=== PATIENT | female | born 1970 | race Hispanic/Latino ===

== ENCOUNTER → 2016-12-27 | Outpatient (CLI) | payer OTHER ==
--- NOTE | 2016-12-27 11:46 | MAM ---
History: Well woman exam. Date of exam: 12/27/2016 Services provided: Bilateral full field digital screening mammography. CAD, the images were reviewed with R2 computer aided detection. FINDINGS: Glandular tissue is heterogeneously dense with increased mammographic density. Images are compared with 2014 study. Overall distribution appears stable. No dominant mass, architectural distortion or clustered microcalcification. IMPRESSION: Benign exam Recommendation: Routine annual mammography BIRAD CATEGORY: 2 BENIGN Electronically signed by: Muriel Mcmanus MD 12/27/2016 11:46 AM [employer]
== END | disposition home or self-care (01) ==
LOC: MAMMO 08:07
PROVIDERS: ATTEND Obstetrics & Gynecology
DX: Z12.31 Encounter for screening mammogram for malignant neoplasm of breast (principal)

== ENCOUNTER → 2017-12-12 | Outpatient (CLI) | payer BC ==
--- NOTE | 2017-12-14 14:28 | RAD ---
EXAM DESCRIPTION: Knee,Left Complete CLINICAL HISTORY: 47 years, Female, PRIMARY ARTHRITIS COMPARISON: None TECHNIQUE: 4 views of the left knee FINDINGS: No fracture or dislocation. Bones appear normally mineralized with normal trabecular pattern. Normal appearance of medial and lateral compartments on frontal view. Lateral view shows normal position of the patella. No patellar spurring or enthesopathy. No suprapatellar knee joint effusion. Normal contour of quadriceps and patellar tendons. Lateral tilt of the patella is seen without subluxation on patellar sunrise view. No patellar fracture. IMPRESSION: Negative for fracture or dislocation. Electronically signed by: Wilfredo Castro MD 12/14/2017 2:26 PM [facility]
== END ==
LOC: RAD 08:11
PROVIDERS: ATTEND Obstetrics & Gynecology
DX: M17.12 Unilateral primary osteoarthritis, left knee (principal)

== ENCOUNTER → 2018-07-25 | Outpatient (CLI) | payer BC | LOC: LAB.O 07:46 | PROVIDERS: ATTEND Family Medicine | DX: R53.82 Chronic fatigue, unspecified (principal); D50.8 Other iron deficiency anemias; M25.50 Pain in unspecified joint; Z13.220 Encounter for screening for lipoid disorders ==

== ENCOUNTER → 2018-07-31 | Outpatient (CLI) | payer BC ==
--- NOTE | 2018-08-01 09:27 | MRI ---
EXAM DESCRIPTION: Knee,Left CLINICAL HISTORY: 48 years Female, LT KNEE PAIN COMPARISON: None. TECHNIQUE: Noncontrast multiplanar multisequence magnetic resonance imaging of the left knee was performed using standard protocol. FINDINGS: Mucoid type degenerative signal is present within the proximal attachment of the lateral head of the gastrocnemius. Associated multilobulated ganglion cyst extending from the medial aspect of the lateral head of the gastrocnemius is 1.6 x 1.4 x 2.1 cm respectively. Multifocal cartilage fibrillation is seen throughout the lateral patellar facet articular surface with areas of subchondral cyst like change and edema consistent with grade 4 chondrosis. Small 5 mm focus of grade 3 chondrosis is seen within the medial patellar facet. No corresponding trochlear groove chondrosis. Articular surfaces of the lateral and medial compartments appears smooth. Increased PD signal is seen within the suprapatellar fat pad adjacent to the lateral patellar facet. Physiologic joint fluid is present. No synovitis. Small 1.4 cm developing Guerrero's cyst cyst. Lateral and medial menisci exhibit normal thickness and morphology. The collateral ligaments are intact. The quadriceps and patellar tendons are normal in thickness and signal intensity. Medial and lateral patellar retinacular attachments are maintained. Anterior and posterior cruciate ligaments are intact. Small amount of pes anserine bursal fluid collection is seen. IMPRESSION: Mucoid degenerative signal proximal attachment lateral gastrocnemius with accompanying 1.6 x 1.4 x 2.1 cm multilobulated ganglion. 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 Increased PD signal with mild thickening of the suprapatellar fat pad. Impingement versus contusion. Small pes anserine bursitis. No significant joint effusion or synovitis. Intact cruciate and collateral ligaments. Intact menisci. Electronically signed by: Carter Reyes MD 08/01/2018 9:26 AM CDT
== END ==
LOC: MRI 11:34
PROVIDERS: ATTEND Family Medicine
DX: M67.462 Ganglion, left knee (principal); M70.52 Other bursitis of knee, left knee; M22.42 Chondromalacia patellae, left knee; M25.562 Pain in left knee

== ENCOUNTER → 2018-08-26 | Outpatient (CLI) | payer BC ==
--- NOTE | 2018-08-26 08:34 | RAD ---
EXAM DESCRIPTION: Knee,Left Complete for x-ray views CLINICAL HISTORY: 48 years, Female, PAIN IN LEFT KNEE COMPARISON: X-ray left knee December 12, 2017 TECHNIQUE: Four views of the left knee FINDINGS: No fracture or dislocation. Bones appear normally mineralized with normal trabecular pattern. Normal appearance of medial and lateral compartments on frontal view. Mild spurring of the tibial spines. Lateral view shows normal position of the patella. Mild posterior patellar spurring. No suprapatellar knee joint effusion. Normal contour of the patellar tendon. Question mild strandy edema around the quadriceps tendon, similar to previous study. Mild lateral tilt of the patella on patellar sunrise view without significant subluxation. IMPRESSION: Negative for fracture or dislocation. Electronically signed by: Wilfredo Castro MD 08/26/2018 8:33 AM CDT
--- NOTE | 2018-08-26 08:35 | RAD ---
EXAM DESCRIPTION: Pelvis CLINICAL HISTORY: 48 years Female, PAIN IN LEFT HIP COMPARISON: None. FINDINGS: Few phleboliths in the pelvis. Mild degenerative changes at the pubic symphysis and SI joints. Bones of the pelvic ring appear intact. Intact appearance of the hip joints. Mild iliac enthesopathy. IMPRESSION: Mild degenerative changes. Electronically signed by: Wilfredo Castro MD 08/26/2018 8:34 AM CDT
== END ==
LOC: RAD 07:56
PROVIDERS: ATTEND Orthopaedic Surgery
DX: M25.562 Pain in left knee (principal); M25.552 Pain in left hip

== ENCOUNTER → 2019-08-04 | Outpatient (CLI) | payer BC ==
--- NOTE | 2019-08-06 17:52 | MAM ---
EXAM DESCRIPTION: 3D Screening BILATERAL : Digital Mammography. CLINICAL HISTORY: 49 years Female ANNUAL SCREENING . No complaints. No personal or family history of breast cancer. Menarche age 14. Childbirth. Hysterectomy age 48. No HRT. Benign right breast cyst aspiration.. Lifetime risk of developing breast cancer (Tyrer-Cuzick model)(%): 10.0 COMPARISON: 2-D digital screening bilateral mammography 12/27/2016. TECHNIQUE: Bilateral CC and MLO projection full-field images, digital tomosynthesis mammographic technique. Bilateral digital 2-D full-field MLO images. CAD not available for tomosynthesis or 2-D images. FINDINGS: The breast parenchymal density pattern is: Heterogeneously dense breast tissue, which may obscure small masses.. Benign solitary microcalcifications bilaterally. Central fibroglandular tissues are slightly more dense in the left breast in the right but this is stable since the prior study No new focal, stellate mass or density, focal asymmetry , and no suspicious microcalcifications bilaterally. Stable mammograms compared to prior study. Taking into account, differences in mammographic technique. IMPRESSION: Benign exam. BIRAD CATEGORY: 2 BENIGN FINDINGS. RECOMMENDATIONS: FOLLOW UP: Routine digital bilateral mammographic screening, one year interval from July 2019. Written communication explaining the IMPRESSION and follow-up, will be mailed to the patient and referring health care provider. According to the [employer], yearly mammograms are recommended starting at age 40 and continuing as long as a woman is in good health. Any breast change noted on a breast self-exam should be reported promptly to the patient's healthcare provider. Breast MRI is recommended for women with an approximately 20-25% or greater lifetime risk of breast cancer, including women with a strong family history of breast or ovarian cancer and women who have been treated for Hodgkin's disease. A negative mammographic report should not delay tissue diagnosis in patients with significant clinical history or physical findings. Extremely dense breast tissue limits the sensitivity of digital mammography. Electronically signed by: Andreas Tang MD 08/06/2019 5:50 PM CDT
== END ==
LOC: MAMMO 15:28
PROVIDERS: ATTEND Obstetrics & Gynecology
DX: Z12.31 Encounter for screening mammogram for malignant neoplasm of breast (principal)